=== PATIENT | female | born 1965 | race Caucasian/White ===

== ENCOUNTER → 2022-04-10 | Outpatient (CLI) | payer MEDICAID ==
[~2022-04-10] VITALS: Ht 170.2 cm; Wt 81.8 kg
[~2022-04-10] MED LIST: LIDOCAINE 1% INJ 20 ML VIAL INJ ONE
--- NOTE | 2022-04-10 14:28 | Diagnostic Imaging Report ---
Indication: Left thyroid mass. Patient presents for ultrasound guided fine needle aspiration biopsy. Patient brought to the procedure room placed on table in the supine position. Ultrasound imaging of the neck was performed to evaluate appropriate entry site. The neck was then prepped and draped in usual sterile fashion. Small amount 1% lidocaine was utilized for local anesthesia. A total of 4 passes were made into the solid dominant mass left lobe of thyroid utilizing 25-gauge needles and fine-needle aspiration technique. A single pass was made with a Rotex needle and a Rotex biopsy was performed. Hemostasis was obtained. Patient tolerated the procedure well left the department in stable condition. IMPRESSION: Successful ultrasound-guided fine-needle aspiration and Rotex biopsy of dominant left lobe thyroid mass. Pathology results are currently pending. Dictated by: Dictated on workstation # [id number]
== END ==
LOC: RAD 11:20
PROVIDERS: ATTEND Nurse Practitioner Family
DX: E07.9 Disorder of thyroid, unspecified (principal)
CPT/HCPCS: 10005

== ENCOUNTER → 2023-06-17 | Outpatient (CLI) | payer MEDICAID ==
[~2023-06-17] MED LIST changes: +CATHETER FLUSH 10 ML SYR IVP PRN; -LIDOCAINE 1% INJ 20 ML VIAL INJ ONE
[2023-06-17 09:02] VITALS: BP 130/89
--- NOTE | 2023-06-17 11:50 | Cardiology Stress Test Report ---
Stress Test Report Date of Procedure/Referring: Date of Procedure: Jun 17, 2023 [facility] Admitting Physician Admitting Physician: Attending Physician: Josh Ramirez MD Baseline Heart Rate: 75 Baseline Blood Pressure: Blood Pressure Systolic: 130 Blood Pressure Diastolic: 89 Baseline Vitals Vital Signs Date Time Temp Pulse Resp B/P (MAP) Pulse Ox O2 Delivery O2 Flow Rate FiO2 06/17/23 09:02 75 130/89 (103) Baseline EKG: Baseline EKG: NSR Summary After explaining the procedure to the patient, she signed a consent and then brought to the stress nuclear laboratory. Patient received 0.4 mg Lexiscan for stress test, ECG, heart rate and blood pressure were monitored continuously. Resting and stress dose of radio tracer were injected, imaging was acquired and reviewed in short axis, horizontal long axis and vertical long axis views. TID: 0.81 SSS: 2 SDS: 2 EF: 71 Patient tolerated Lexiscan well No significant ischemia or infarction noted on SPECT images Normal left ventricular size, ejection fraction 71% Copy Copies To 1: [facility]/ JOSH RAMIREZ MD Jun 17, 2023 11:50
== END ==
LOC: CARD 07:45
PROVIDERS: ATTEND Internal Medicine Cardiovascular Disease
DX: I10 Essential (primary) hypertension (principal); I25.10 Atherosclerotic heart disease of native coronary artery without angina pectoris
CPT/HCPCS: 78452; 93017; A9502